=== PATIENT | female | born 1975 | race African-American/Black ===

== ENCOUNTER 2016-07-06 07:14 | Emergency (ER) | payer BC, OTHER ==
[2016-07-06 07:24] VITALS: TEMP 98.3; BMI 36.1
[2016-07-06] MEDS ORDERED: SODIUM CHLORIDE 1,000 ML IV ONE (08:39)
[2016-07-06] MEDS ORDERED: morphine CARPU-JECT 4 MG/1 ML DISP.SYRIN IVPUSH ONE (08:39)
[2016-07-06] MEDS ORDERED: ONDANSETRON 4 MG/2 ML VIAL IVPB ONE (08:39)
[2016-07-06] MEDS ORDERED: FAMOTIDINE 20 MG/50 ML IVPB 50 ML IVPB ONE ×2 (08:39→09:41)
--- NOTE | 2016-07-06 08:43 | PDOC ---
History of Present Illness - General History Source: Patient Exam Limitations: No Limitations - History of Present Illness Initial Comments: 07/06/16 08:58 The patient is a 40 year old female with significant past medical history of hypertension who presents to the emergency department with abdominal pain, nausea, vomiting, and diarrhea that started last night around 11:30pm. The patient states her symptoms came on gradually and she notes vomiting x4 and diarrhea x2 which were both nonbloody and nonbilious. The patient reports diffuse abdominal pain which is localized to the epigastric region and it is cramping and intermittent in nature. Her pain does not radiate. The patient denies any associated chest pain or shortness of breath. She denies any dysuria , frequency, or hematuria. The patient denies any recent travel or recent antibiotic use. The patient states she ate out last night at a restaurant. 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 The patient has a surgical history of a . She denies recent illness, fevers, or chills. <Chrissie Ibarra - Last Filed: 07/06/16 09:28> <Ta Lamar - Last Filed: 07/06/16 13:21> - General Chief Complaint: Pain Stated Complaint: ABD PAIN Time Seen by Provider: 07/06/16 08:22 Past History <Chrissie Ibarra - Last Filed: 07/06/16 09:28> - Past Medical History HTN: Yes - Psycho/Social/Smoking Cessation Hx Anxiety: No Suicidal Ideation: No Smoking History: Never smoked Hx Alcohol Use: Yes (SOCIAL) Drug/Substance Use Hx: No Substance Use Type: None <Ta Lamar - Last Filed: 07/06/16 13:21> - Past Medical History Allergies/Adverse Reactions: Allergies Allergy/AdvReac Type Severity Reaction Status Date / Time No Known Allergies Allergy Verified 07/06/16 07:24 Home Medications: Ambulatory Orders Amlodipine Besylate [Norvasc -] 5 mg PO DAILY 07/06/16 Ondansetron [Zofran *Odt*] 8 mg SL TID PRN #20 od.tablet 07/06/16 Review of Systems - Review of Systems Constitutional: Yes: Chills. No: Fever Respiratory: No: Cough, Shortness of Breath Cardiac (ROS): No: Chest Pain ABD/GI: Yes: Diarrhea, Vomiting : No: Dysuria All Other Systems: Reviewed and Negative <Ta Lamar - Last Filed: 07/06/16 13:21> *Physical Exam - Vital Signs Last Vital Signs Temp Pulse Resp BP Pulse Ox 98.3 F 94 H 20 150/77 99 07/06/16 07:19 07/06/16 07:19 07/06/16 07:19 07/06/16 07:19 07/06/16 07:19 - Physical Exam Comments: 07/06/16 08:58 GENERAL: The patient is awake, alert, and fully oriented, in no acute distress. HEAD: Normal with no signs of trauma. EYES: Pupils equal, round and reactive to light, extraocular movements intact, sclera anicteric, conjunctiva clear with no pallor. ENT: Ears normal, nares patent, oropharynx clear without exudates. +Dry mucous membranes. NECK: Normal range of motion, supple without lymphadenopathy, JVD, or masses. LUNGS: Breath sounds equal, clear to auscultation bilaterally. No wheeze/ crackles. HEART: +Slight tachycardic and regular rhythm, normal S1 and S2 without murmur or rub. ABDOMEN: +Diffuse abdominal discomfort, greatest in epigastric region. No focal guarding or rebound in RLQ or RUQ. Soft/nondistended. BS wnl. No palpable masses. No hepatosplenomegaly. EXTREMITIES: Normal range of motion, no edema. No clubbing or cyanosis. No cords, erythema, or tenderness. NEUROLOGICAL: Cranial nerves II through XII grossly intact. Normal speech, normal gait. PSYCH: Normal mood, normal affect. SKIN: Warm, Dry, normal turgor, no rashes or lesions noted. <Chrissie Ibarra - Last Filed: 07/06/16 09:28> - Vital Signs Last Vital Signs Temp Pulse Resp BP Pulse Ox 98.3 F 94 H 20 150/77 99 07/06/16 07:19 07/06/16 07:19 07/06/16 07:19 07/06/16 07:19 07/06/16 07:19 <Ta Lamar - Last Filed: 07/06/16 13:21> ED Treatment Course - LABORATORY CBC & Chemistry Diagram: 07/06/16 09:45 07/06/16 10:33 <Ta Lamar - Last Filed: 07/06/16 13:21> Medical Decision Making - Medical Decision Making 07/06/16 08:41 A portion of this note was documented by scribe services under my direction. I have reviewed the details of the note, within reason, and agree with the documentation with the following case summary and management plan written by me. 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 No travel, no recent antibiotics, ate at a restaurant last night, otherwise no diet changes. No history of recurring GI illnesses. Vital signs as noted. Dry mucosa. Epigastric discomfort to palpation without focal guarding or rebound. 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 Will check labs and urine IV fluids, antiemetics, antacids, pain control Reassess 07/06/16 10:51 No leukocytosis but left shift. Chemistries hemolyzed, awaiting repeat. Initially improved but then abdominal pain returned, upon reexamination she is slightly more tender in the right lower quadrant, so will check CAT scan to rule out appendicitis. 07/06/16 13:13 CAT scan note some right lower quadrant inflammatory changes, but a normal appendix is visualized and therefore unlikely acute appendicitis. Patient feels markedly improved, her pain has essentially resolved, there is no localizing pain to the right lower quadrant. On reexamination, has lower abdominal discomfort to palpation bilaterally but no focal guarding or rebound in the right lower quadrant, no Rovsing sign. She is tolerating by mouth, has had no further vomiting or diarrhea in the ED, and wants to go home. We discussed the CT findings, the strict return precautions regarding her pain symptoms, but she feels much better and wants to go home. <Ta Lamar - Last Filed: 07/06/16 13:21> *DC/Admit/Observation/Transfer - Attestations Scribe Attestion: 07/06/16 08:52 Documentation prepared by Chrissie Ibarra, acting as product manager medical device for Ta Lamar MD. <Chrissie Ibarra - Last Filed: 07/06/16 09:28> <Ta Lamar - Last Filed: 07/06/16 13:21> Diagnosis at time of Disposition: Gastroenteritis - Discharge Dispostion Disposition: HOME Condition at time of disposition: Improved - Prescriptions Prescriptions: Ondansetron [Zofran *Odt*] 8 mg SL TID PRN #20 od.tablet PRN Reason: Nausea - Referrals Referrals: Hubert Ngo MD [Staff Physician] - - Patient Instructions Printed Discharge Instructions: DI for Viral Gastroenteritis -- Adult Additional Instructions: Activity as tolerated. Stay hydrated. Advance diet as tolerated, avoiding dairy , spicy or fatty foods, caffeine and alcohol. As discussed, your symptoms are likely due to a viral infection. Blood tests showed no acute abnormalities, a CAT scan showed some inflammation in the lower part of the right belly but it does not appear to be appendicitis. That being said, we can watch your symptoms at home, but if your pain gets worse or more persistent, you should come back to the emergency department. Continue your medications as previously prescribed by your physician. Zofran as prescribed as needed for nausea. You should follow up with your primary doctor as soon as possible regarding today's emergency department visit. Consider calling Dr. Ngo if you need a primary physician. Return to the emergency department for any new or concerning symptoms, particularly persistent or worsening pain, persistent vomiting or dehydration, fevers or chills, bloody vomit or stool.
[2016-07-06] MEDS ORDERED: morphine CARPU-JECT 4 MG/1 ML DISP.SYRIN ONE (09:41)
[2016-07-06] MEDS ORDERED: ONDANSETRON 4 MG/2 ML VIAL ONE (09:41)
[2016-07-06 10:05] LABS: BASOPHIL 0.6 % (0-2.0); MCH 25.6 pg (25.7-33.7); MCHC 32.5 g/dl (32.0-36.0); MEAN CELL VOLUME 78.9 fl (80-96); MEAN PLT VOLUME 8.5 fl (7.5-11.1); NEUTROPHILS 87.8 % (42.8-82.8); PLATELET COUNT 333 K/MM3 (134-434); RDW 14.9 % (11.6-15.6); URINE APPEARANCE CLEAR; URINE BILIRUBIN NEGATIVE (NEGATIVE); URINE BLOOD NEGATIVE (NEGATIVE); URINE COLOR LTYELLOW; URINE GLUCOSE (UA) NEGATIVE (NEGATIVE); URINE KETONE NEGATIVE (NEGATIVE); URINE NITRITE NEGATIVE (NEGATIVE); URINE UROBILINOGEN NEGATIVE E.U./dl (0.2-1.0); WHITE BLOOD COUNT 7.6 K/mm3 (4.0-10.0)
[2016-07-06 10:06] LABS: URINE LEUK ESTERASE TRACE (NEGATIVE); URINE PROTEIN 1+ (NEGATIVE)
[2016-07-06 10:29] LABS: URINE MUCUS RARE; URINE RBC 3 /hpf (0-3); URINE WBC <1 /hpf (3-5)
[2016-07-06] MEDS ORDERED: HYDROmorphone HCL CARPU-JECT 1 MG/1 ML DISP.SYRIN IVPUSH ONE (10:50)
[2016-07-06 11:11] LABS: ALBUMIN 4.2 g/dl (3.4-5.0); ANION GAP 6 (8-16); BILIRUBIN,TOTAL 0.3 mg/dL (0.2-1.0); CALCIUM 8.3 mg/dL (8.5-10.1); CO2 26 mmol/L (21-32); CREATININE 0.8 mg/dL (0.55-1.02); GLUCOSE,RANDOM 137 mg/dL (74-106); SGOT/AST 19 U/L (15-37); SGPT/ALT 35 U/L (12-78); TOT PROT 7.7 g/dl (6.4-8.2)
[2016-07-06 11:14] LABS: ALK PHOS 51 U/L (45-117); TROPONIN I < 0.02 ng/ml (0.00-0.05)
[2016-07-06] MEDS ORDERED: HYDROmorphone HCL CARPU-JECT 1 MG/1 ML DISP.SYRIN ONE (11:21)
[2016-07-06 13:46] VITALS: BP 139/79; PULSE 81
== END 2016-07-06 13:46 | disposition home or self-care (01) ==
LOC: JER 07:14
PROC: 3E033GC Introduction of Other Therapeutic Substance into Peripheral Vein, Percutaneous Approach (ICD-10-PCS; principal; 2016-07-06)
PROC: 3E033NZ Introduction of Analgesics, Hypnotics, Sedatives into Peripheral Vein, Percutaneous Approach (ICD-10-PCS; 2016-07-06)
PROC: 3E0337Z Introduction of Electrolytic and Water Balance Substance into Peripheral Vein, Percutaneous Approach (ICD-10-PCS; 2016-07-06)
DX: K52.9 Noninfective gastroenteritis and colitis, unspecified (principal); I10 Essential (primary) hypertension
CPT/HCPCS: 36415; 74177-TC; 80053; 81003; 81015; 82550; 82553; 83690; 84484; 84703; 85025; 99282-25